=== PATIENT | female | born 1960 | race Caucasian/White ===

== ENCOUNTER → 2017-06-19 18:20 | Outpatient (CLI) | payer BC, SELFPAY ==
[2017-06-21 17:10] LABS: H. pylori Breath Test Negative (Negative)
== END ==
PROVIDERS: PCP Surgery; Visit Provider Surgery
DX: R10.13 Epigastric pain (principal)
CPT/HCPCS: 83013

== ENCOUNTER → 2017-06-28 11:24 | Outpatient (CLI) | payer BC, SELFPAY ==
--- NOTE | 2017-06-28 11:38 | XR_ITS ---
XR chest 2V HISTORY: ITS.REASON: DYSPNEA ORDERING PHYSICIAN: Referral Provider, PATIENT AGE: 57 years COMPARISON: 12/10/2016 FINDINGS: The cardiomediastinal silhouette and pulmonary vascularity are within normal limits. The lungs are clear without infiltrates, suspicious nodules, or pleural effusions. No acute bony abnormalities. IMPRESSION: Negative chest, no acute finding
[2017-06-28 11:53] LABS: Basophils % 0.6 % (0.1-2.0); Eosinophils # 0.1 K/mm3 (0.0-0.4); Eosinophils % 1.6 % (0.1-12.0); Hemoglobin 12.9 g/dL (12.2-16.2); Lymphocytes # 1.9 K/mm3 (0.7-4.5); Lymphocytes % 24.8 K/mm3 (10-50); Mean Corpuscular HGB Conc 33.2 g/dL (31.8-35.4); Mean Corpuscular Hemoglobin 29.1 pg (27.0-31.2); Mean Corpuscular Volume 87.6 fl (81-99); Mean Platelet Volume 7.8 fl (7.4-10.4); Monocytes # 0.4 K/mm3 (0.1-1.0); Neutrophils # 5.1 K/mm3 (1.8-7.8); Neutrophils % 68.1 % (37.0-80.0); Platelet Count 278 K/mm3 (142-424); Red Blood Count 4.45 M/mm3 (4.20-5.40); Red Cell Distribution Width 14.4 % (11.5-17.5); White Blood Count 7.5 K/mm3 (4.8-10.8)
[2017-06-28 13:36] LABS: Albumin Level 3.9 gm/dL (3.4-5.0); Anion Gap 11.7 mEq/L (5-15); Blood Urea Nitrogen 14 mg/dL (7-18); Calcium 9.1 mg/dL (8.5-10.1); Carbon Dioxide 30 mmol/L (21.0-32.0); Chloride 101 mmol/L (98-107); Creatinine,Serum 0.69 mg/dL (0.55-1.02); Estimated Glomerular Filt Rate 87 ml/min (>60); GFR (African American) 105 ML/MIN (>60); Glucose 90 mg/dL (74-106); Potassium 3.7 mmoL/L (3.5-5.1); Sodium 139 mmol/L (136-145)
[2017-06-28 14:00] LABS: Alanine Aminotransferase 30 U/L (12-78); Alkaline Phosphatase 115 U/L (46-116); Aspartate Amino Transferase 18 U/L (15-37); Bilirubin,Total 0.4 mg/dL (0.2-1.0); Globulin 3.8 gm/dl (1.3-3.2); Total Protein,Serum 7.7 gm/dL (6.4-8.2)
== END ==
PROVIDERS: PCP Family Medicine; Visit Provider Physician Assistant
DX: R06.00 Dyspnea, unspecified (principal); R53.83 Other fatigue
CPT/HCPCS: 36415; 71046; 80053; 85025

== ENCOUNTER → 2017-08-28 13:42 | Outpatient (CLI) | payer BC, SELFPAY ==
[2017-08-28 15:18] LABS: Alanine Aminotransferase 29 U/L (12-78); Albumin Level 3.8 gm/dL (3.4-5.0); Albumin/Globulin Ratio 1.1 (1.1-1.8); Alkaline Phosphatase 81 U/L (46-116); Anion Gap 10.2 mEq/L (5-15); Aspartate Amino Transferase 19 U/L (15-37); Bilirubin,Total 0.4 mg/dL (0.2-1.0); Blood Urea Nitrogen 17 mg/dL (7-18); Calcium 9.4 mg/dL (8.5-10.1); Carbon Dioxide 31 mmol/L (21.0-32.0); Chloride 103 mmol/L (98-107); Creatinine,Serum 0.52 mg/dL (0.55-1.02); Estimated Glomerular Filt Rate 121 ml/min (>60); Ferritin 261 ng/mL (8-388); GFR (African American) 146 ML/MIN (>60); Globulin 3.6 gm/dl (1.3-3.2); Glucose 110 mg/dL (74-106); Iron 32 ug/dl (28-170); Magnesium 1.8 mg/dL (1.4-2.2); Phosphorous 3.5 mg/dL (2.4-4.9); Potassium 3.2 mmoL/L (3.5-5.1); Sodium 141 mmol/L (136-145); Total Protein,Serum 7.4 gm/dL (6.4-8.2)
[2017-08-28 16:33] LABS: Basophils # 0.1 K/mm3 (0-0.2); Basophils % 0.7 % (0.1-2.0); Eosinophils # 0.1 K/mm3 (0.0-0.4); Eosinophils % 1.2 % (0.1-12.0); Hematocrit 41.1 % (37.0-47.0); Hemoglobin 13.4 g/dL (12.2-16.2); Lymphocytes % 23.9 K/mm3 (10-50); Mean Corpuscular HGB Conc 32.5 g/dL (31.8-35.4); Mean Corpuscular Hemoglobin 28.9 pg (27.0-31.2); Mean Corpuscular Volume 88.8 fl (81-99); Mean Platelet Volume 10.9 fl (7.4-10.4); Monocytes # 0.3 K/mm3 (0.1-1.0); Monocytes % 3.3 % (1.7-9.3); Neutrophils # 5.9 K/mm3 (1.8-7.8); Neutrophils % 70.9 % (37.0-80.0); Platelet Count 233 K/mm3 (142-424); Red Blood Count 4.63 M/mm3 (4.20-5.40); Red Cell Distribution Width 14.5 % (11.5-17.5); White Blood Count 8.3 K/mm3 (4.8-10.8)
[2017-08-30 10:46] LABS: Folate >20.0 ng/mL (>3.0); Parathyroid Hormone Intact 26 pg/mL (15-65); Prealbumin 13 mg/dL (10-36); Vitamin D 25 Hydroxy 41.6 ng/mL (30.0-100.0)
[2017-09-01 18:47] LABS: Methylmalonic Acid 145 nmol/L (0-378); Vitamin B1 174.6 nmol/L (66.5-200.0); Zinc 70 ug/dL (56-134)
[2017-09-02 10:11] LABS: Vitamin E Alpha Tocopherol 12.1 mg/L (7.0-25.1)
[2017-09-03 06:02] LABS: Vitamin A 20.2 ug/dL (33.1-100.0); Vitamin E Gamma Tocopherol 1.8 mg/L (0.5-5.5)
== END ==
PROVIDERS: Visit Provider Surgery
DX: R53.83 Other fatigue (principal); E55.9 Vitamin D deficiency, unspecified; K91.2 Postsurgical malabsorption, not elsewhere classified; Z90.3 Acquired absence of stomach [part of]
CPT/HCPCS: 36415; 80053; 82131; 82652; 82728; 82746; 83540; 83735; 83970; 84100; 84134; 84425; 84446; 84590; 84630; 85025

== ENCOUNTER → 2017-10-12 09:02 | Outpatient (CLI) | payer BC, SELFPAY ==
[2017-10-12 09:32] LABS: Basophils % 0.5 % (0.1-2.0); Eosinophils # 0.1 K/mm3 (0.0-0.4); Eosinophils % 2.1 % (0.1-12.0); Hematocrit 41.4 % (37.0-47.0); Hemoglobin 12.9 g/dL (12.2-16.2); Lymphocytes # 1.9 K/mm3 (0.7-4.5); Lymphocytes % 29.3 K/mm3 (10-50); Mean Corpuscular Hemoglobin 27.4 pg (27.0-31.2); Mean Corpuscular Volume 88.4 fl (81-99); Monocytes # 0.3 K/mm3 (0.1-1.0); Monocytes % 4.8 % (1.7-9.3); Neutrophils % 63.2 % (37.0-80.0); Platelet Count 256 K/mm3 (142-424); Red Blood Count 4.69 M/mm3 (4.20-5.40); Red Cell Distribution Width 14.7 % (11.5-17.5); White Blood Count 6.3 K/mm3 (4.8-10.8)
[2017-10-12 10:57] LABS: Alanine Aminotransferase 39 U/L (12-78); Albumin Level 3.8 gm/dL (3.4-5.0); Albumin/Globulin Ratio 1.1 (1.1-1.8); Alkaline Phosphatase 88 U/L (46-116); Anion Gap 11.5 mEq/L (5-15); Aspartate Amino Transferase 20 U/L (15-37); Bilirubin,Total 0.5 mg/dL (0.2-1.0); Blood Urea Nitrogen 9 mg/dL (7-18); Calcium 9.1 mg/dL (8.5-10.1); Carbon Dioxide 32 mmol/L (21.0-32.0); Chloride 104 mmol/L (98-107); Creatinine,Serum 0.53 mg/dL (0.55-1.02); Estimated Glomerular Filt Rate 118 ml/min (>60); Ferritin 300 ng/mL (8-388); GFR (African American) 143 ML/MIN (>60); Globulin 3.4 gm/dl (1.3-3.2); Glucose 88 mg/dL (74-106); Iron 48 ug/dl (28-170); Potassium 3.5 mmoL/L (3.5-5.1); Sodium 144 mmol/L (136-145); Total Protein,Serum 7.2 gm/dL (6.4-8.2)
[2017-10-13 17:29] LABS: Prealbumin 14 mg/dL (10-36)
[2017-10-14 13:27] LABS: Vitamin D 25 Hydroxy 46.8 ng/mL (30.0-100.0)
[2017-10-15 06:12] LABS: Folate >20.0 ng/mL (>3.0)
[2017-10-15 14:38] LABS: Vitamin B1 132.8 nmol/L (66.5-200.0)
[2017-10-15 14:39] LABS: Methylmalonic Acid 122 nmol/L (0-378)
[2017-10-17 15:19] LABS: Vitamin A 19.2 ug/dL (33.1-100.0)
== END ==
PROVIDERS: Visit Provider Physician Assistant
DX: R53.83 Other fatigue (principal); E55.9 Vitamin D deficiency, unspecified; Z13.0 Encounter for screening for diseases of the blood and blood-forming organs and certain disorders involving the immune mechanism; Z13.21 Encounter for screening for nutritional disorder; K91.2 Postsurgical malabsorption, not elsewhere classified; Z90.3 Acquired absence of stomach [part of]; E66.9 Obesity, unspecified
CPT/HCPCS: 36415; 80053; 82131; 82652; 82728; 82746; 83540; 84134; 84425; 84590; 85025

== ENCOUNTER → 2018-01-25 08:48 | Outpatient (CLI) | payer BC, SELFPAY ==
[2018-01-25 09:31] LABS: Basophils % 0.7 % (0.1-2.0); Eosinophils # 0.2 K/mm3 (0.0-0.4); Eosinophils % 2.6 % (0.1-12.0); Hematocrit 37.9 % (37.0-47.0); Hemoglobin 12.3 g/dL (12.2-16.2); Lymphocytes # 2.1 K/mm3 (0.7-4.5); Lymphocytes % 33.9 K/mm3 (10-50); Mean Corpuscular HGB Conc 32.3 g/dL (31.8-35.4); Mean Corpuscular Hemoglobin 29.8 pg (27.0-31.2); Mean Corpuscular Volume 92.2 fl (81-99); Mean Platelet Volume 8.1 fl (7.4-10.4); Monocytes # 0.3 K/mm3 (0.1-1.0); Monocytes % 4.6 % (1.7-9.3); Neutrophils # 3.7 K/mm3 (1.8-7.8); Neutrophils % 58.3 % (37.0-80.0); Platelet Count 253 K/mm3 (142-424); Red Blood Count 4.12 M/mm3 (4.20-5.40); White Blood Count 6.3 K/mm3 (4.8-10.8)
[2018-01-25 10:05] LABS: Alanine Aminotransferase 22 U/L (12-78); Albumin Level 3.4 gm/dL (3.4-5.0); Alkaline Phosphatase 79 U/L (46-116); Anion Gap 8.5 mEq/L (5-15); Aspartate Amino Transferase 15 U/L (15-37); Bilirubin,Total 0.4 mg/dL (0.2-1.0); Blood Urea Nitrogen 11 mg/dL (7-18); Carbon Dioxide 33 mmol/L (21.0-32.0); Chloride 107 mmol/L (98-107); Creatinine,Serum 0.47 mg/dL (0.55-1.02); Estimated Glomerular Filt Rate 136 ml/min (>60); Ferritin 295 ng/mL (8-388); GFR (African American) 164 ML/MIN (>60); Globulin 3.3 gm/dl (1.3-3.2); Glucose 97 mg/dL (74-106); Iron 59 ug/dl (28-170); Potassium 3.5 mmoL/L (3.5-5.1); Sodium 145 mmol/L (136-145); Total Protein,Serum 6.7 gm/dL (6.4-8.2)
[2018-01-27 05:26] LABS: Folate >20.0 ng/mL (>3.0); Prealbumin 14 mg/dL (10-36)
[2018-01-29 07:46] LABS: Vitamin D 25 Hydroxy 66.7 ng/mL (30.0-100.0)
[2018-01-29 07:48] LABS: Methylmalonic Acid 148 nmol/L (0-378)
[2018-01-31 18:32] LABS: Vitamin A 21.6 ug/dL (33.1-100.0); Vitamin B1 188.7 nmol/L (66.5-200.0)
== END ==
PROVIDERS: PCP Family Medicine; Visit Provider Physician Assistant
DX: E50.9 Vitamin A deficiency, unspecified (principal); E55.9 Vitamin D deficiency, unspecified; R53.83 Other fatigue; K91.2 Postsurgical malabsorption, not elsewhere classified; Z13.0 Encounter for screening for diseases of the blood and blood-forming organs and certain disorders involving the immune mechanism; Z13.21 Encounter for screening for nutritional disorder; E66.3 Overweight
CPT/HCPCS: 36415; 80053; 82131; 82652; 82728; 82746; 83540; 84134; 84425; 84590; 85025

== ENCOUNTER → 2018-04-26 09:16 | Outpatient (CLI) | payer BC, SELFPAY ==
[2018-04-26 09:34] LABS: Basophils # 0.1 K/mm3 (0-0.2); Basophils % 1.1 % (0.1-2.0); Eosinophils # 0.1 K/mm3 (0.0-0.4); Eosinophils % 2.4 % (0.1-12.0); Hematocrit 37.7 % (37.0-47.0); Hemoglobin 12.1 g/dL (12.2-16.2); Lymphocytes % 35.4 % (10-50); Mean Corpuscular HGB Conc 32.1 g/dL (31.8-35.4); Mean Corpuscular Hemoglobin 29.8 pg (27.0-31.2); Mean Corpuscular Volume 93.1 fl (81-99); Mean Platelet Volume 9.6 fl (7.4-10.4); Monocytes # 0.3 K/mm3 (0.1-1.0); Monocytes % 5.6 % (1.7-9.3); Neutrophils # 3.1 K/mm3 (1.8-7.8); Neutrophils % 55.4 % (37.0-80.0); Platelet Count 206 K/mm3 (142-424); Red Blood Count 4.05 M/mm3 (4.20-5.40); Red Cell Distribution Width 13.7 % (11.5-17.5); White Blood Count 5.5 K/mm3 (4.8-10.8)
[2018-04-26 12:56] LABS: Alanine Aminotransferase 26 U/L (12-78); Albumin Level 3.6 gm/dL (3.4-5.0); Albumin/Globulin Ratio 1.1 (1.1-1.8); Alkaline Phosphatase 74 U/L (46-116); Anion Gap 10.3 mEq/L (5-15); Aspartate Amino Transferase 18 U/L (15-37); Bilirubin,Total 0.5 mg/dL (0.2-1.0); Blood Urea Nitrogen 17 mg/dL (7-18); Calcium 8.9 mg/dL (8.5-10.1); Carbon Dioxide 32 mmol/L (21.0-32.0); Chloride 105 mmol/L (98-107); Creatinine,Serum 0.49 mg/dL (0.55-1.02); Estimated Glomerular Filt Rate 129 ml/min (>60); Ferritin 301 ng/mL (8-388); GFR (African American) 156 ML/MIN (>60); Globulin 3.3 gm/dl (1.3-3.2); Glucose 92 mg/dL (74-106); Potassium 3.3 mmoL/L (3.5-5.1); Sodium 144 mmol/L (136-145); Total Protein,Serum 6.9 gm/dL (6.4-8.2)
[2018-04-28 06:31] LABS: Folate >20.0 ng/mL (>3.0); Prealbumin 14 mg/dL (10-36)
[2018-05-01 18:11] LABS: Methylmalonic Acid 123 nmol/L (0-378)
[2018-05-02 16:15] LABS: Vitamin A 20.8 ug/dL (22.0-69.5)
[2018-05-03 13:59] LABS: Vitamin B1 204.2 nmol/L (66.5-200.0)
== END ==
PROVIDERS: Visit Provider Physician Assistant
DX: E55.9 Vitamin D deficiency, unspecified (principal); E50.9 Vitamin A deficiency, unspecified; R53.83 Other fatigue; K91.2 Postsurgical malabsorption, not elsewhere classified; Z13.0 Encounter for screening for diseases of the blood and blood-forming organs and certain disorders involving the immune mechanism; Z13.21 Encounter for screening for nutritional disorder; Z90.3 Acquired absence of stomach [part of]
CPT/HCPCS: 36415; 80053; 82131; 82728; 82746; 84134; 84425; 84590; 85025

== ENCOUNTER → 2018-09-19 10:50 | Outpatient (CLI) | payer BC, SELFPAY ==
--- NOTE | 2018-09-19 10:53 | MM_ITS ---
MM Dig screening mamm BI w/CAD CAD Screening COMPARISON: Digital mammograms with CAD 03/22/2014 from [place], [place] and digital mammograms with CAD 05/25/2015 from [facility] INDICATION: There is been previous breast reduction surgery about 20 years ago. There has been a 100 pound weight loss since previous mammogram. TECHNIQUE: Standard CC and MLO images were obtained. R2 CAD reviewed. FINDINGS: Prominent diffuse fibroglandular densities are seen throughout both breasts. There are numerous microcalcifications in the central portions of both breast most of which appear to be consistent with sclerosing adenosis though calcifications secondary to fat necrosis in view of the previous surgery is very likely. There is no suspicious mass and there are no suspicious cluster of microcalcifications. There is a mole marker right breast. IMPRESSION: Moderate diffuse breast density with multiple benign-appearing microcalcifications BI-RADS Category: 2 Benign Finding(s) RECOMMENDED FOLLOW-UP: 1YR - 1 YEAR FOLLOW-UP (A letter has been sent to the patient regarding results of the study.)
== END ==
PROVIDERS: PCP Family Medicine; Visit Provider Obstetrics & Gynecology
DX: Z12.31 Encounter for screening mammogram for malignant neoplasm of breast (principal)
CPT/HCPCS: 77067

== ENCOUNTER → 2019-08-10 09:14 | Outpatient (CLI) | payer BC, SELFPAY ==
--- NOTE | 2019-08-10 09:20 | CT_ITS ---
PROCEDURE: CT ABDOMEN PELVIS WO CON CLINICAL INDICATION: RT FLANK PAIN COMPARISON: No exams were available for comparison TECHNIQUE: Axial images obtained with sagittal and coronal reformats. All CT scans at the facility use one or more dose reduction, viz: automated exposure control, ma/kV adjustment per patient size (including targeted exams where dose is matched to indication, i.e. head), or iterative reconstruction technique. FINDINGS: LOWER THORAX: No acute finding there is coronary atherosclerosis. 333 ABDOMEN & PELVIS: The liver, spleen, pancreas, adrenal glands, show no acute finding. There is a hyperdensity in the anterior inferior right renal cortex 10.7 millimeters with Hounsfield unit measurements 88 most consistent with a hemorrhagic cyst. Additionally a 15 millimeter hypodensity in the posterior cortex of the lower pole of the right kidney is noted probably a cyst. 7 millimeter hypodensity in the posterior cortex of the left kidney is also noted likely a cyst. There is no renal stone or obstruction. There is a small hiatal hernia. No intestinal obstruction or free air. Gastric bypass procedure appears to be present. There has been prior cholecystectomy. No evidence of appendicitis or diverticulitis. No pelvic mass, abnormal fluid collection, or focal inflammatory change of the pelvis. No acute bony anomalies. Note is made of an approximately 1 centimeter rim calcified nodule in the right pelvis. This is of uncertain etiology and significance. A focal rim calcified vascular aneurysm could give this appearance. There is no associated hematoma. Other possibilities would include a rim nonspecific calcified cyst seroma,, or chronic hematoma. It is probably benign. IMPRESSION: 10.7 millimeter lesion of right kidney likely a hemorrhagic cyst. Cortical cysts of both kidneys are otherwise suggested. No renal stone or obstruction. Dictated by: Souleymane Goodrich 08/10/2019 09:48 Electronically signed by Souleymane Goodrich in [facility] 08/10/2019 09:48
== END ==
PROVIDERS: PCP Family Medicine; Visit Provider Physician Assistant
DX: R10.9 Unspecified abdominal pain (principal)
CPT/HCPCS: 74176

== ENCOUNTER → 2021-02-22 12:07 | Outpatient (CLI) | payer BC, SELFPAY | PROVIDERS: PCP Family Medicine; Visit Provider Nurse Practitioner | DX: Z20.822 Contact with and (suspected) exposure to COVID-19 (principal); U07.1 COVID-19 | CPT/HCPCS: C9803; U0003; U0005 ==

== ENCOUNTER → 2021-10-17 13:07 | Outpatient (POV) | payer BC, SELFPAY | PROVIDERS: Visit Provider Dermatology | DX: Z00.00 Encounter for general adult medical examination without abnormal findings (principal) ==

== ENCOUNTER → 2021-10-26 12:59 | Outpatient (CLI) | payer BC, SELFPAY ==
--- NOTE | 2021-10-26 12:59 | MM_ITS ---
PROCEDURE INFORMATION: Exam: MG Bilateral Screening 3D Mammography Exam date and time: 10/26/2021 1:00 PM Age: 61 years old Clinical indication: Screening examination TECHNIQUE: Imaging protocol: Bilateral Screening tomosynthesis and 2D mammography including computer-aided detection (CAD) when performed. COMPARISON: 1. MG DIG MAMM-SCREEN MADI 09/19/2018 11:12 AM 2. MG DMSB DIG MAMM-SCREEN MADI 05/25/2015 3:35 PM FINDINGS: MAMMOGRAPHY: Breast composition: There are scattered areas of fibroglandular density. Mass: None. Architectural distortion: None. Calcifications: No suspicious calcifications. Asymmetric density: None. Skin thickening: None. Axillary adenopathy: None. IMPRESSION: No mammographic evidence of malignancy. Annual screening is recommended unless otherwise clinically indicated. ASSESSMENT: BI-RADS Category 1: Negative
== END ==
PROVIDERS: PCP Internal Medicine Adolescent Medicine; Visit Provider Obstetrics & Gynecology
DX: Z12.31 Encounter for screening mammogram for malignant neoplasm of breast (principal)
CPT/HCPCS: 77063; 77067

== ENCOUNTER → 2022-12-18 13:49 | Outpatient (POV) | payer BC, SELFPAY | PROVIDERS: Visit Provider Dermatology | DX: Z00.00 Encounter for general adult medical examination without abnormal findings (principal) ==

== ENCOUNTER 2023-12-03 10:23 | Outpatient (CLI) | payer MEDICARE, SELFPAY ==
[2023-12-03 12:18] LABS: Chloride 107 mmol/L (98-107)
[2023-12-03 12:19] LABS: Potassium 3.8 mmoL/L (3.5-5.1); Sodium 142 mmol/L (136-145)
[2023-12-03 12:21] LABS: Alanine Aminotransferase 22 U/L (12-78); Albumin Level 3.9 g/dl (3.5-5.0); Albumin/Globulin Ratio 1.4 (1.1-1.8); Alkaline Phosphatase 105 U/L (38-126); Anion Gap 9.8 mEq/L (5-15); Aspartate Amino Transferase 33 U/L (14-36); Bilirubin,Total 0.4 mg/dl (0.2-1.3); Blood Urea Nitrogen 15 mg/dl (7-17); Carbon Dioxide 29 mmol/L (22.0-30.0); Cholesterol 171 mg/dl (140-200); Estimated Glomerular Filt Rate 100 ml/min (>60); GFR (African American) 121 ML/MIN (>60); Globulin 2.8 g/dL (1.3-3.2); Total Protein,Serum 6.7 g/dl (6.3-8.2); Triglycerides 94 mg/dl (30-150); VLDL Cholesterol 19 mg/dL (0-40)
[2023-12-03 12:22] LABS: Calcium 9.2 mg/dl (8.4-10.2); Chol/HDL Ratio 3.1 (1-3.5); Glucose 54 mg/dl (74-100); HDL Cholesterol 55 mg/dl (40-60)
[2023-12-03 12:33] LABS: Direct LDL Cholesterol 78.94 mg/dL (100-129)
== END 2023-12-03 23:59 | disposition home or self-care (01) ==
LOC: LAB 10:25
PROVIDERS: PCP Nurse Practitioner Family; Visit Provider Nurse Practitioner Family
DX: I10 Essential (primary) hypertension (principal); E78.5 Hyperlipidemia, unspecified
CPT/HCPCS: 36415; 80053; 80061

== ENCOUNTER 2024-04-24 08:31 | Outpatient (CLI) | payer MEDICARE, SELFPAY ==
[2024-04-24 09:24] LABS: Basophils # 0.1 K/mm3 (0-0.2); Basophils % 0.9 % (0.1-2.0); Eosinophils # 0.1 K/mm3 (0.0-0.4); Eosinophils % 0.9 % (0.1-12.0); Hemoglobin 13.7 g/dL (12.2-16.2); Lymphocytes # 1.5 K/mm3 (0.7-4.5); Lymphocytes % 23.8 % (10-50); Mean Corpuscular HGB Conc 34.2 g/dL (31.8-35.4); Mean Corpuscular Hemoglobin 31.9 pg (27.0-31.2); Mean Corpuscular Volume 93.5 fl (81-99); Mean Platelet Volume 8.1 fl (7.4-10.4); Monocytes # 0.4 K/mm3 (0.1-1.0); Neutrophils # 4.2 K/mm3 (1.8-7.8); Neutrophils % 68.4 % (37.0-80.0); Platelet Count 202 K/mm3 (142-424); Red Blood Count 4.27 M/mm3 (4.20-5.40); Red Cell Distribution Width 13.2 % (11.5-17.5); White Blood Count 6.1 K/mm3 (4.8-10.8)
[2024-04-24 10:14] LABS: Alanine Aminotransferase 19 U/L (12-78); Albumin Level 4.2 g/dl (3.5-5.0); Alkaline Phosphatase 114 U/L (38-126); Aspartate Amino Transferase 36 U/L (14-36); Bilirubin,Direct 0.3 mg/dl (0.0-0.4); Bilirubin,Indirect 0.3 mg/dL (0.0-0.9); Bilirubin,Total 0.6 mg/dl (0.2-1.3); Bilirubin,Unconjugated 0.3 mg/dL (0.0-1.1); Chol/HDL Ratio 3.2 (1-3.5); Cholesterol 170 mg/dl (140-200); HDL Cholesterol 53 mg/dl (40-60); Total Protein,Serum 6.6 g/dl (6.3-8.2); Triglycerides 117 mg/dl (30-150); VLDL Cholesterol 23 mg/dL (0-40)
[2024-04-24 10:25] LABS: Direct LDL Cholesterol 92.61 mg/dL (100-129)
== END 2024-04-24 23:59 | disposition home or self-care (01) ==
PROVIDERS: PCP Nurse Practitioner Family; Visit Provider Dermatology
DX: Z79.899 Other long term (current) drug therapy (principal)
CPT/HCPCS: 36415; 80061; 80076; 85025

== ENCOUNTER 2024-10-25 08:18 | Emergency (ER) | payer MEDICARE, SELFPAY ==
[2024-10-25 08:18] VITALS: BP 162/96; PULSE 77; RESP 17; TEMP 36.7; O2SAT 97; BMI 25.8
[2024-10-25 08:23] VITALS: BP 167/96; PULSE 78; O2SAT 94
[2024-10-25] MEDS: TETRACAINE 0.5% OPTH SOL 15ML OP (08:23)
[2024-10-25] MEDS: FLUORESCEIN SODIUM 1MG STRIP 1 MG OP (08:23)
--- OUTSIDE RECORDS SUMMARY | 2024-10-25 08:27 | XMS_ITS | Data Portability ---
Author Organization [facility] Address [address] [place] [address] Assessment No assessment recorded. Plan of Treatment Reminders Order Date Submit Date Provider Last Modified By Organization Details Last Modified Time Details Appointments None recorded. Lab CBC w/ auto diff 2023 [facility], [address] [place] [address], [id number], 4 11:23:25 hepatic function panel, serum 2023 024 [facility], [address] [place] [address], [id number], 4 12:45:40 lipid panel, serum 2023 024 [facility], [address] [place] [address], [id number], 4 12:45:40 Referral None recorded. Procedures None recorded. Surgeries None recorded. Imaging None recorded. Medication Orders doxycycline hyclate 100 mg capsule [id number] [facility] [address] [facility], [address] [place] [address], [facility], [place], [address], 4 15:53:32 metronidazo le 0.75 % topical cream [id number] [place] [address] Pharmacy, [address] [place] [address], [address], [place], [address], 4 15:53:32 Patient TargetsNo targets recorded. Patient InstructionsNo instructions recorded. Reason for Referral None Reported. Results Created Date Observation Date Name Description Value Unit Range Abnormal Flag Note LastModifiedBy Organization Detail LastModifiedTime Result Notes None recorded. Medical Equipment None Reported. Allergies No known drug allergies Medications Name Sig Start Date Stop Date Status Note LastModified by Organization Details LastModified Time doxycycline hyclate 100 mg capsule Take 1 capsule twice a day by oral route. 2023 active Not Available Not Available Not Avai lable tretinoin 0.05 % topical cream Apply by topical route for 30 days. 2023 active Not Available Not Available Not Avai lable metronidazol e 0.75 % topical cream APPLY A THIN LAYER TO THE AFFECTED AREA(S) BY TOPICAL ROUTE 2 TIMES PER DAY IN THE MORNING AND EVENING UNTIL FOLLOW UP APPOINTMENT 2023 active Not Available Not Available Not Avai lable atorvastatin active Not Available Not Available Not Available Vitals None Recorded Social History Question Answer Notes LastModified by Organizat ion Details LastModified Time Tobacco Smoking Status Never Smoker Prasad Posadaskinson [facility] 03/13/2024 11:43:03 What Was The Date Of Your Most Recent Tobacco Screening? 04/22/2024 [email or web address] Information not available 04/22/2024 Sex: Unknown Functional Status Question Answer Note LastModified by Organization D etails LastModified Time What is your level of alcohol consumption? None [email or web address] Information not available 03/13/2024 Mental Status None recorded. Family History Nothing Reported. Medical History No medical history recorded. Gynecological HistoryNo gynecological history recorded. Obstetrics History GPAL:G 0 P 0 0 0 0 Past Encounters Encounter ID Performer Location Encounter Start Date Encounter Closed Date Diagnosis/Indication Diagnosis SNOMED-CT Code Diagnosis ICD10 Code Diagnosis Note [id number] MARZENA GAMBINO MD [place] [address] [place] [address] 03/13/2024 11:08:51 03/13/2024 12:43:28 Solar lentigo 53106583 L81.4 - Benign appearing, reassuranc e given - Counseled on importance of daily sun protection and self skin exams/nilda toring for ugly duckling lesions Multiple b enign melanocytic nevi 531508275 D22.5 - Benign appearing, reassuranc e given - Counseled on importance of daily sun protection and self skin exams/nilda toring for ugly duckling lesions Senile angioma 5768507 I 78.1 - Benign appearing, reassuranc e given Seborrheic keratosis [id number] L82.1 - Benign appearing, reassuranc e given Milia [id number] L72.0 - Benign, reassuranc e- Discussed etiology -- harmless pinpoint cysts containing keratin- Consider future milia extraction PRN if irritated/ bothersome &/or cosmetic extraction if bothersome appearance - Tretinoin for milia in reserve once Rosacea/pe rioral derm are improved. Rosacea [id number] L71.8 Non stable, chronic.Ro sacea/giselle orificial derm on FH/around eyes. - Start DCN 100mg BID until FUP. Discussed GI SE, photoSn. Take with food & full glass of water, do not lie down after taking, teratogeni city.- Start metro .75% cream as directed.- FUP in 6 weeks - Continue medication s until follow up [id number] MARZENA GAMBINO MD [address] [address] 04/22/2024 10:01:08 04/22/2024 13:06:40 Milia [id number] L72.0 - Benign, reassuranc e- Discussed etiology -- harmless pinpoint cysts containing keratin- Discussed accutane as medical treatment for insurance coverage purposes Rosacea [id number] L71.8 Non stable, chronic.Ro sacea/giselle orificial derm on FH/around eyes. - Stop DCN 100mg due to starting Isotretino in. Need to be off doxy for at least 48 hrs before starting isotretino in. Long-term current use of drug therapy [id number] Z79.899 Patient Enrollment Complete.Y our patient s REMS ID [id number] Your patient will receive additional informatio n by their preferred method of communicat ion. Acne vulgaris [id number] L 70.0 Numerous milial papules/ac neiform cysts on face. - Discussed treatment option with isotretino in vs. CO2 laser or deep chemical peels. Given symptomati c nature of these knife like feeling, pt desires medical tx with isotretino in.- Reviewed risks/bene fits as well as common and rare side effects of isotretino in including dry skin, dry lips, GI upset, diarrhea, blood in stool, muscle aches, joint pain, liver function abnormalit ies, and elevated triglyceri mark, severe defects, as well as associatio n with depression and IBD- Registered in [facility]Pledge at [facility]- control: N/A; prior Tubal litigation and post menopausal - last period x 10 years ago- Plan to start isotretino in 40mg pending labs WNL - Pt weight: 180lbs - 82 kg- Goal dose (based on 150mg/kg - 220mg/kg; 82kg): 12,300mg - 18,040mgSt arting Month 1: iso 40mg QD -- pending baseline labs Health Concerns Section Related Observation LastModified by Organization Detai ls LastModified Time None Recorded Concern Status LastModified by Organization Details LastModified Time None Recorded Advance Directives Directive None Recorded Payers Insurance Date Sequence Insurance Name Policy Number Policy Love Covered Member ID Love Member ID Guarantor Name 08/09/2024 1 [employer] (MEDICARE REPLACEMENT/A DVANTAGE - PPO) Ashlyn Melgoza Sanchez [id number] Ashlyn Sanchez 04/22/2024 1 [place] Ashlyn Sanchez [id number] Ashlyn Sanchez Notes Date Note Type Note Provider Name and Address Organization Details Recorded Time 03/13/2024 text/html Pt is here for a full body skin exam today.- No Hx- New pt @ [facility]- Spots of concern today:back breakout Location( s): faceGeneral duration: ~monthsPredominant symptom:rednessPrio r treatment(s): noneRecently, the breakout seems to be:minimally changed- pt denies wall plug-ins, candles, pt uses tide detergent, Denies changes in makeup or skincare MARZENA GAMBINO MD [address] [place], [address], [facility] 03/13/2024 12:42:01 04/22/2024 text/html Rosacea Locatio n(s ): faceGeneral duration: 6 week f/uPredominant symptom: rednessPrior treatment(s):abhijeet short tx: DCN 100 mg BID, Metronidazole creamRecently, the rosacea seems to be: its better, but I am still having breakouts Pt says redness is better but still has bumps Tubal ligation yrs ago, last menstrual cycle ~10 yrs ago. MARZENA GAMBINO MD [address] [place], [address], [facility] 04/22/2024 12:46:49 OBGyn Episode No OBEpisode recorded.
--- OUTSIDE RECORDS SUMMARY | 2024-10-25 08:27 | XMS_ITS | Clinical Summary ---
Author Organization Healthcare Address [address] [place] [address] Care Team Providers Care Kitchen Chef Name Role Phone Joe Marie MD Primary Care Provider [phone] Family History Medical History Relation Name Comments Hypertension Father Relation Name Status Comments Father Social History Tobacco Use Types Packs/Day Years Used Date Smoking Tobacco: Never Comments Unknown Sex and Gender Information Value Date Recorded Sex Assigned at Not on file Legal Sex Female 6:04 PM EDT Gender Identity Not on file Sexual Orientation Not on file Last Filed Vital Signs Vital Sign Reading Time Taken Comments Blood Pressure - - Pulse - - Temperature - - Respiratory Rate - - Oxygen Saturation - - Inhaled Oxygen Concentration - - Weight 129 kg (284 lb) 11/21/2015 8:50 AM EDT Height 175.3 cm (5' 9 ) 11/21/2015 8:50 AM EDT Body Mass Index 41.94 11/21/2015 8:50 AM EDT Plan of Treatment Not on file Care Teams Kitchen Chef Relationship Specialty Start Date End Date Joe Marie MD [address] [place] [address] PCP - General 09/23/20
--- OUTSIDE RECORDS SUMMARY | 2024-10-25 08:27 | XMS_ITS ---
Author Organization Unknown Medications Medication Instructions Effective Dates (start - stop) Status valsartan 320 MG Oral Tablet 202 07-14-26T00:00:00.000+00 :00 - Completed atorvastatin 10 MG Oral Tablet 2 153-38-19F09:00:00.000+00 :00 - Completed atorvastatin 10 MG Oral Tablet 2 482-61-84T94:00:00.000+00 :00 - Completed valsartan 320 MG Oral Tablet 202 07-17-20:00:00.000+00 :00 - Completed valsartan 320 MG Oral Tablet 202 07-11-24:00:00.000+00 :00 - Completed erythromycin 0.005 MG/MG Oph thalmic Ointment 6305-88-75K08:00:00.000+00 :00 - Completed atorvastatin 10 MG Oral Tablet 2 272-80-56G39:00:00.000+00 :00 - Completed atorvastatin 10 MG Oral Tablet 2 402-79-34C94:00:00.000+00 :00 - Completed atorvastatin 10 MG Oral Tablet 2 859-72-86K18:00:00.000+00 :00 - Completed ofloxacin 3 MG/ML Ophthalmic Solution [id number]:00:00.000+00 :00 - Completed valsartan 320 MG Oral Tablet 202 06-22-18:00:00.000+00 :00 - Completed atorvastatin 10 MG Oral Tablet 2 [id number]:00:00.000+00 :00 - Completed atorvastatin 10 MG Oral Tablet 2 698-90-76R27:00:00.000+00 :00 - Completed dexamethasone 1 MG/ML / neom ycin 3.5 MG/ML / polymyxin B 70641 UNT/ML Ophthalmic Suspension [id number]:00:00.000+00 :00 - Completed hydrochlorothiazide 12.5 MG / valsartan 320 MG Oral Tablet 5709-04-19C96:00:00.000+0 0 :00 - Completed hydrochlorothiazide 12.5 MG / valsartan 320 MG Oral Tablet [id number]:00:00.000+0 0 :00 - Completed dexamethasone 1 MG/ML / neom ycin 3.5 MG/ML / polymyxin B 10733 UNT/ML Ophthalmic Suspension 3010-40-95F95:00:00.000+00 :00 - Completed Patient Care team information Name Category Status Period Participants - - Proposed period not known -
--- NOTE | 2024-10-25 08:48 | HMH.EDGENADL ---
Discharge Plan Disposition Chief Complaint: Eye Problems Prescriptions Prescriptions: No Action atorvastatin 10 mg tablet 10 mg PO DAILY valsartan 320 mg tablet 320 mg PO DAILY Referrals Follow up/Referrals: Kristen Cordero APRN [Primary Care Provider, Medical] - See instructions Print Language Print Language: Uzbek Discharge ED Provider: Sosa Pink General Adult HPI General Chief complaint: Eye Problems Stated complaint: contact stuck in right eye Time Seen by Provider: 10/25/24 08:21 History of Present Illness HPI narrative: Ashlyn Sanchez is a 64 y/o female presenting with eye irritation. Patient reports wearing contacts and is unsure if you got the entire contact out of her right eye last night. Patient attempted to put in a contact this morning and felt that her eye was very irritated on the right side. She felt like the contact became suction to her eye. She attempted to get an eye out but could not. Patient cannot see where the contact is. Patient complains of mild blurriness in the right eye and increased tearing. Patient denies headache, double vision, syncope, neck pain, TMJ pain, trauma. Related Data Home Medications ?Medication ?Instructions ?Recorded ?Confirmed atorvastatin 10 mg tablet 10 mg PO DAILY 10/17/21 10/25/24 valsartan 320 mg tablet 320 mg PO DAILY 10/17/21 10/25/24 Allergies Allergy/AdvReac Type Severity Reaction Status Date / Time No Known Allergies Allergy Verified 10/17/21 11:17 [facility] Disclaimer: The information contained in this section may have been updated after the patient was seen, as this information can be updated by other users. Medical History (Updated 10/25/24 @ 10:18 by Laxmi Watt RN) HLD (hyperlipidemia) HTN (hypertension) Surgical History (Updated 10/25/24 @ 10:18 by Laxmi Watt RN) Hx of hysterectomy Social History Smoking Status: Never smoker alcohol intake: never substance use type: denies use current occupational status: employed Travel in the last 8 weeks?: None Have you lived/traveled outside US in past 30 days?: No Contact w/someone who lives/traveled outside US past 30 days?: No Exposure to someone with infectious disease in past 14 days?: No Do you have a fever (greater than 100.4 F or 38 C)?: No Have you tested positive for COVID-19?: No Exposed to someone with COVID-19 in past 14 days?: No Do you have a sore throat?: No Do you have a cough?: No Do you have any weakness?: No Do you have any diarrhea?: No Are you experiencing any unusual bleeding?: No Do you have any muscle aches/pain?: No Do you have any abdominal pain?: No Are you experiencing loss of taste or smell?: No Other Medical History Have you received the Flu Vaccine for this season: No Have you received the Pneumonia Vaccine: No ROS Obtained: Yes All systems reviewed & no additional complaints except as documented Physical Exam General General appearance: alert and in no apparent distress Eye Eye exam: Present PERRL, EOMI, conjunctival redness and conjunctival injection; Absent periorbital swelling or periorbital tenderness Respiratory Respiratory exam: Present normal lung sounds bilaterally; Absent respiratory distress Cardiovascular Cardiovascular exam: Present regular rate and normal rhythm; Absent JVD Abdominal Exam Abdominal exam: Present soft and normal bowel sounds; Absent distention, tenderness or guarding Neurological Exam Neurological exam: Present alert and oriented X3 Psychiatric Psychiatric exam: Present normal affect and normal mood Skin Skin exam: Present warm, dry, intact and normal color Medical Decision Making Medical Records Medical records reviewed: Yes I reviewed the patient's medical records. Screening: Per USPSTF and CDC recommendations, given the prevalence of disease in our region, it is our hospital?s policy to screen for HIV and viral Hepatitis for all patients aged 18 and over and those with ongoing risk factors. Froylan Inquiry Pt receiving controlled substance: No Vital Signs: 10/25/24 08:18 10/25/24 08:23 10/25/24 09:30 Temperature 98.1 F Temperature Source Oral Pulse Rate 78 71 Pulse Rate [Right] 77 Respiratory Rate 17 18 Blood Pressure 167/96 H 203/105 H Blood Pressure [Right Arm] 162/96 H Blood Pressure Mean 137 Blood Pressure Mean [Right Arm] 118 Blood Pressure Source [Right Arm] Automatic Cuff 02 Sat by Pulse Oximetry 97 94 L 98 Oxygen Delivery Method Room Air Room Air 10/25/24 09:32 10/25/24 10:00 Temperature Temperature Source Pulse Rate 73 69 Pulse Rate [Right] Respiratory Rate 18 Blood Pressure 199/96 H 224/113 H Blood Pressure [Right Arm] Blood Pressure Mean 137 Blood Pressure Mean [Right Arm] Blood Pressure Source [Right Arm] 02 Sat by Pulse Oximetry 97 100 Oxygen Delivery Method Room Air Orders (Tests/Meds): ED MEDICATIONS Discontinued Medications Generic Name Dose Route Start Last Admin Trade Name Esther PRN Reason Stop Dose Admin Erythromycin 1 gm 10/25/24 09:59 10/25/24 10:07 Erythromycin Base 1 Gm Oint...G. OP 10/25/24 10:00 1 gm ONCE ONE Administration Eye Irrigation Solution 120 ml 10/25/24 10:07 10/25/24 10:08 Eye Wash Irrigation Soln 118ml Bottle OP 10/25/24 10:08 120 ml ONCE ONE Administration Fluorescein Sodium 1 mg 10/25/24 08:23 10/25/24 08:23 Fluorescein Sodium 1mg Strip OP 10/25/24 08:24 1 mg ONCE ONE Administration Sodium Chloride 500 ml 10/25/24 08:42 10/25/24 08:50 Sodium Chloride 0.9% 500ml Bag IV 10/25/24 08:43 500 ml ONCE ONE Administration Tetracaine HCl 0 ml 10/25/24 08:23 10/25/24 08:23 Tetracaine 0.5% Opth Agnieszka 15ml OP 10/25/24 08:24 15 ml ONCE ONE Administration Medical Decision Narrative: In summary, this is a 64-year-old female presenting ocular foreign body. Differential diagnosis includes but is not limited to, foreign body, corneal ulcer versus abrasion, acute angle glaucoma, uveitis, among others. Patient has medical history consistent with hypertension. On initial evaluation, patient afebrile, hemodynamically stable in no acute distress. Patient has a significantly irritated right. Patient has had fevers, double vision, loss of vision. Patient initially evaluated with direct visualization. No contact lens was observed. Patient's eye was stained with fluorescein and no ulcerations or abnormal uptake was noted on Anderson lamp exam. After 200 cc's of normal saline via Devyn lens, an abnormality in the contact lens was noted at the 6 o'clock position of patient's iris. Utilizing a saline covered sterile Q-tip, I was able to dislodge part of the contact lens with some improvement in the patient's vision. Additional flushing and forceps were used but, the contact lens continues to be in pieces causing irritation. Imaging was considered and ultimately not performed as would not change patient management. I discussed transfer to an funeral director's assistant for better tools and further exam to wich the patient was reluctant. Pt was given erythromycin ointment and further flushing without relief, but continued to have pieces of the contact come out with flushing. [facility] to get [facility]. Awaiting for a return call. MDs return call with Dr. De La Torre ( [facility]) on the call. After discussing the patient she recommended additional drop of tetracaine for comfort and to send to ED for further management. Plan was discussed with the patient. She was advised to present to ED for further evaluation. Pt in agreement with plan and transferred in stable condition. Sosa Pink MD Procedures Foreign Body Removal Time Out Performed: Yes Site: right and other (eye) Description of foreign body: other (contact lense) Sedation/Analgesia: other (tetracaine) Technique: manual removal, removal with forceps and irrigation Confirmed by:: direct visualization Complications: none (foreign body not completely removed. ) Post-procedure exam: awake, alert Neurovascular: no change from pre-procedure Critical Care Critical Care Time Critical Care Time: No
[2024-10-25] MEDS: SODIUM CHLORIDE 0.9% 500ML BAG 500 ML IV (08:50)
--- NOTE | 2024-10-25 09:15 | PC.NURSE ---
Flushing to R eye completed via inocente lens and 500ml of NS. Dr Pink notified that it is completed. Pt tolerated well. Several small clear debris in basin. notified of this.
[2024-10-25 09:30] VITALS: BP 203/105; PULSE 71; RESP 18; O2SAT 98
[2024-10-25 09:32] VITALS: BP 199/96; PULSE 73; O2SAT 97
--- NOTE | 2024-10-25 09:45 | PC.NURSE ---
took pt to the restroom, also assisted her back to the room and back in to stretcher
[2024-10-25 10:00] VITALS: BP 224/113; PULSE 69; RESP 18; O2SAT 100
[2024-10-25] MEDS: ERYTHROMYCIN BASE 1 GM OINT...G. OP (10:07)
[2024-10-25] MEDS: EYE WASH IRRIGATION SOLN 118ML BOTTLE 120 ML OP (10:08)
--- NOTE | 2024-10-25 10:14 | PC.NURSE ---
Pt reports increased pain and burning to R eye after erythromycin ointment applied. MD notified.
--- NOTE | 2024-10-25 10:18 | PC.NURSE ---
Calling transfer center for ophthalmology consult
--- NOTE | 2024-10-25 10:26 | PC.NURSE ---
Dr Pink s/w Ophthalmology
[2024-10-25 10:35] VITALS: BP 196/99; PULSE 74; RESP 18; TEMP 36.7; O2SAT 97
--- NOTE | 2024-10-25 10:35 | PC.NURSE ---
Dr Phan s/w pt and her , agrees to be trasnferred to . Dr De La Torre accepted. OK to go POV.
== END 2024-10-25 10:50 | disposition other institution (70) ==
PROVIDERS: Emergency Provider Student in an Organized Health Care Education/Training Program; PCP Nurse Practitioner Family
DX: H44.731 Retained (nonmagnetic) (old) foreign body in lens, right eye (principal)
CPT/HCPCS: 99283; J7040